=== PATIENT | female | born 1960 | race Caucasian/White ===

== ENCOUNTER 2023-04-13 16:02 | Outpatient (RCR) | payer OTHER, SELFPAY | END 2023-04-13 23:59 | disposition home or self-care (01) | LOC: ROT 16:02 | PROVIDERS: ATTENDING PHYSICIAN Orthopaedic Surgery Hand Surgery; PRIMARYCARE PHYSICIAN Internal Medicine | DX: M77.12 Lateral epicondylitis, left elbow (principal); Z73.6 Limitation of activities due to disability | CPT/HCPCS: 97010; 97110; 97166; 97535 ==

== ENCOUNTER 2023-05-04 15:30 | Outpatient (RCR) | payer OTHER, SELFPAY | END 2023-05-04 23:59 | disposition home or self-care (01) | LOC: RPT 15:30 | PROVIDERS: ATTENDING PHYSICIAN Orthopaedic Surgery Hand Surgery; PRIMARYCARE PHYSICIAN Internal Medicine | DX: Z47.89 Encounter for other orthopedic aftercare (principal); M77.12 Lateral epicondylitis, left elbow; Z73.6 Limitation of activities due to disability | CPT/HCPCS: 97010; 97110; 97530 ==

== ENCOUNTER 2023-05-13 13:20 | Outpatient (RCR) | payer OTHER, SELFPAY | END 2023-05-13 23:59 | disposition home or self-care (01) | LOC: RPT 13:20 | PROVIDERS: ATTENDING PHYSICIAN Orthopaedic Surgery Hand Surgery; PRIMARYCARE PHYSICIAN Internal Medicine | DX: Z47.89 Encounter for other orthopedic aftercare (principal); M77.12 Lateral epicondylitis, left elbow | CPT/HCPCS: 97010; 97110; 97140 ==

== ENCOUNTER 2023-07-09 16:45 | Observation (INO) | payer OTHER, SELFPAY ==
[2023-07-09] VITALS (10 sets, daily range): BP systolic 98–125; BP diastolic 56–78; BMI 21.8; BMI 21.1
[2023-07-09 08:44] LABS: % Basophils 0.9 % (0-2); % Eosinophils 2.1 % (0-6); % Immature Granulocytes 0.4 % (0-0.5); % Lymphocytes 40.9 % (20.5-51.1); % Monocytes 8.6 % (1.7-9.3); % Neutrophils 47.1 % (42.2-75.2); Absolute Basophils 0.1 10^3/uL (0-0.2); Absolute Eosinophils 0.2 10^3/uL (0-0.7); Absolute Lymphocytes 3.2 10^3/uL (1.2-3.4); Absolute Monocytes 0.7 10^3/uL (0.1-0.6); Absolute Neutrophils 3.7 10^3/uL (1.4-6.5); Hemoglobin 14.7 g/dL (12.0-16.0); Mean Corp Hgb Conc. 33.4 g/dL (33.0-37.0); Mean Corpuscular Hgb 29.3 pg (27.0-31.0); Mean Corpuscular Volume 87.6 fL (81.0-99.0); Mean Platelet Volume 10.1 fL (7.4-10.4); Nucleated Red Blood Cells % 0 %; Platelet Count 250 10^3/uL (130-400); Red Blood Cell Count 5.02 10^6/uL (4.20-5.40); Red Cell Dist. Width 12.4 % (11.5-14.5); White Blood Cell Count 7.8 10^3/uL (4.8-10.8)
--- NOTE | 2023-07-09 08:47 | ED.GENMED ---
History of Present Illness
General
Chief Complaint: Dizziness
Source: patient
Exam Limitations: none
Time Seen by Provider: 07/09/23 08:19
Nursing documentation reviewed up to this point in time: agreed with
Travel History
Have you had any contact with someone who has COVID-19?: No
Do you have any symptoms of coronavirus? Fever > 100 degrees, chills, cough, shortness of breath, sore throat, loss of taste or smell, muscle aches, or headache?: No
History of Present Illness
History of Present Illness:
Patient is a 62 female who presents to the ER for evaluation of new onset dizziness. Patient reports yesterday morning when she woke up the room was spinning but it resolved in less than 5 minutes. She was fine the rest of the day yesterday but
today she woke up with room spinning again. She tried to walk to the bathroom and fell she was very nauseous with this and diaphoretic. Patient continues to have symptoms here and did vomit here prior to my exam. She complains of dizziness worse
with position but it does occur intermittently at rest. She describes this as the room spinning. She denies any associated headache. She denies any recent head trauma no recent chiropractic manipulation. She denies any upper or lower extremity
numbness Rebeca weakness. She has no medical problems other than anxiety and is on Zoloft. She took an uber here and lives alone.
Past History
Past History
ED Past Medical History: None
ED Past Surgical History: None
Social History
Tobacco: Non-smoker
Alcohol: Occasional
Drug: None
Review of Systems
Review of Systems
Allergies reviewed?: Yes
All Other Systems: ROS reviewed and negative except as documented in HPI and ROS
Constitutional: Reports no symptoms; Denies fever or fatigue
Respiratory: Reports no symptoms
Cardiac: Reports no symptoms
ABD/GI: Reports nausea
: Reports no symptoms
Musculoskeletal: Reports no symptoms
Skin: Reports no symptoms
Neurological: Reports dizzy ('room spinning' ); Denies headache
Psychiatric: Reports no symptoms
Phy Exam
General Physical Exam
General Presentation: no apparent distress
General age: appears stated age
General Skin: warm and dry
General Habitus: normal
General Mental: alert
General Hydration: appears well hydrated
Eye Exam
Eye Exam: PERRL, EOMI and other (Horizontal nystagmus b/l)
Cardiovascular Exam
Cardiovascular Exam: regular rate/rhythm, no murmur and normal peripheral pulses
Pulmonary Exam
Pulmonary Exam: lungs clear and no respiratory distress
Neurological Exam
Neurological Exam: alert, oriented x3, no motor deficits and no sensory deficits
Course
Orders/Labs/Results
Orders:
Orders
07/09/23 07:59
Electrocardiogram (*1) Urgent
Reason for Study: Chest Pain
EKG- Treatment ONCE
07/09/23 08:28
Complete Blood Count/With Diff Urgent
Comprehensive Metabolic Panel Urgent
07/09/23 08:45
CT Head W/o Iv Contrast Urgent
Comment:
Reason For Exam: new onset vertigo no hx of
Lorazepam [Ativan] 0.5 mg IV NOW STA
07/09/23 08:47
0.9% Sodium Chloride 1000 ml [Nss] 1,000 ml IV BOLUS
Ondansetron Injectable [Zofran] 4 mg IV NOW STA
07/09/23 10:03
Physical Therapy Consult [Pt Eval And Treat] Urgent
Treatment: eval for vertigo
Activity Level: Ambulate
07/09/23 13:24
Diphenhydramine [Benadryl] 25 mg IV NOW STA
Metoclopramide [Reglan] 10 mg IV NOW STA
Abnormal Lab Results
07/09/23
08:28
Absolute Monos (auto) 0.7 H 10^3/uL
(0.1-0.6)
Glucose 115 H mg/dl
(70-99)
07/09/23 08:28
07/09/23 08:28
Vital Signs
Initial and Last Documented VS:
Initial Vital Signs
Temp Pulse Resp BP Pulse Ox
97.9 F 90 16 120/78 100
07/09/23 07:55 07/09/23 07:55 07/09/23 07:55 07/09/23 07:55 07/09/23 07:55
Last Documented Vital Signs
Temp Pulse Resp BP Pulse Ox
97.9 F 73 14 99/60 96
07/09/23 07:55 07/09/23 14:15 07/09/23 14:15 07/09/23 14:00 07/09/23 14:15
MDM/Problems Addressed
MDM/Problems Addressed:
Patient is a 62-year-old female who presented to the ER with vertigo. Patient with no prior history of vertigo had small episode yesterday which resolved on its own and woke up again this morning. Patient has had persistent vertigo despite
medications here in the ER on multiple repeat exams obvious nystagmus. She was seen by physical therapy. CT head negative. No other neuro deficits. Evaluated by ED physician will admit
*Radiology
Radiology exam reviewed: radiology read reviewed
*Pulse Oximetry
Patient hypoxic: no
*EKG
Interpreted by ED Provider?: Yes
Interpretation: normal
Heart Rate: 74
Rate: normal
Rhythm: sinus
Ischemia: no ischemia
*Critical Care Note
Total Time (30-74mins, 75-104mins- exclusive of procedures): Not Applicable
ED Attending Note
-
Portions of this chart may have been created with voice recognition software.� Occasional wrong word or��sound alike� substitutions may have occurred due to the inherent limitations of voice recognition software.
Discharge Plan
Departure
Patient Disposition: Admit
Date of Disposition: 07/09/23
Time of Disposition: 14:52
Admit to: Med/Surg
Admit to doctor: hospitalist
Presentation/result/management discussed w/ accepting MD/DO: Hospitalist
Patient with high blood pressure during this ER visit?: No
Condition: Fair
Covid-19: Not Applicable
Discharge Problem:
intractable vertigo
Prescriptions:
No Action
sertraline [Zoloft] 100 mg Tablet
100 mg PO DAILY
acetaminophen [Tylenol Ex Str Arthritis Pain] 500 mg Tablet
1,000 mg PO Q6H PRN (Reason: pain)
Patient Comments:
Prolia 60 mg/mL Syringe
60 mg SC [id number]
Referrals:
Ca Sandoval MD [Family Provider] -
Interventions
Interventions:
*Risk Screen - Suicide Last Done: 07/09/23 07:55
*General Assessment Last Done: 07/09/23 07:55
*Neglect/Abuse Screening Last Done: 07/09/23 07:55
ED- Neurological Assessment Last Done: 07/09/23 09:36
ED Swallowing Screen Last Done: 07/09/23 09:36
Discharge Date and Time
Print Language: MOROCCAN
[2023-07-09 08:58] LABS: ALT (SGPT) 20 U/L (0-35); AST (SGOT) 29 U/L (14-36); Albumin 4.5 g/dl (3.5-5.0); Alkaline Phosphatase 62 U/L (38-126); Blood Urea Nitrogen 16 mg/dl (7-17); Calcium 9.5 mg/dl (8.4-10.2); Carbon Dioxide 28 mmol/L (22-30); Chloride 103 mmol/L (98-107); Estimated Creatinine Clearance 77 ml/min; Glucose 115 mg/dl (70-99); Potassium 3.7 mmol/L (3.5-5.1); Sodium 139 mmol/L (135-145); Total Bilirubin 0.4 mg/dl (0.2-1.3); Total Protein 6.5 g/dl (6.3-8.2); eGFR > 60.00
[2023-07-09] MEDS: ATIVAN 0.5 MG IV (09:07)
[2023-07-09] MEDS: NSS 1000 IV ×2 (09:07→19:20)
[2023-07-09] MEDS: ZOFRAN 4 MG IV ×2 (09:07→19:18)
[2023-07-09] MEDS: BENADRYL 25 MG IV (14:02)
[2023-07-09] MEDS: REGLAN 10 MG IV (14:02)
--- NOTE | 2023-07-09 16:32 | HPS.HSE ---
Family Physician
-
Family Physician: Ca Sandoval
Chief Complaint
-
acute onset of vertigo
History of Present Illness
patient last week was troubled with the upper respiratory illness including losing her voice. She saw PCP and got antibiotics. her voice came back this Tuesday.
Yesterday morning when she woke up from the bed she had a sudden spinning movement of the environment around her. Resolved in 5 minutes.
Today when she woke up ,again she had return of the spinning feeling. It persisted today all Today she lost balance. She was feeling sweaty and hot at 1 point.
She can make this been a feeling stop.
She vomited once in the ER today.
When she was in ER looking towards the RN she felt her eyes were confused. She has not noticed much with the changes in the head movement but even sitting up for me she started to feel vertiginous.
No headache. No prior history of vertigo. No prior history of strokes or TIAs. No head trauma. Not known to have risk factors for stroke-no diabetes mellitus, non-smoker, no hypertension or hyperlipidemia. No cardiac disease.
Denies any double vision, speech disturbance, motor weakness or sensory symptoms in the hands or legs.
she states she has age-related hearing impairment. Getting a second opinion next month. Denies any tinnitus. This is ongoing for the last 6 months.
Medical History
Past Medical History
Past Medical History: Reports Psychiatric (Anxiety)
Past Surgical History: Reports None
Social History
Tobacco: Non-smoker
Alcohol: Occasional
Drug: None
Living: With Family
Family History
Family History: Not pertinent
Allergies / Home Medications
Allergies reflects when Allergies were last updated in [employer].
Home Medications with original date entered in [employer]
Allergy/Medication List:
Allergies
Allergy/AdvReac Type Severity Reaction Status Date / Time
No Known Allergies Allergy Verified 08/26/22 08:05
Home Medications
acetaminophen 500 mg tablet 1,000 mg PO Q6HPRN PRN mild pain 04/06/22
denosumab 60 mg/mL subcutaneous syringe (Prolia) 60 mg SC [id number] 04/06/22
sertraline 100 mg tablet (Zoloft) 100 mg PO HS 04/06/22
ascorbic acid (vitamin C) 500 mg tablet (Vitamin C) 500 mg PO DAILY 07/09/23
calcium carbonate (Calcium 600) 600 mg PO BID 07/09/23
cyanocobalamin (vitamin B-12) 1,000 mcg tablet 1,000 mcg PO DAILY 07/09/23
ferrous sulfate 325 mg (65 mg iron) tablet 325 mg PO DAILY 07/09/23
zolpidem 5 mg tablet (Ambien) 5 mg PO HSPRN PRN sleep 07/09/23
Review of Systems
-
A 12 point ROS was completed and negative except as noted: Yes
Physical Exam
Vital Signs
Vital Signs
Temp Pulse Resp BP Pulse Ox
97.9 F 82 23 110/64 96
07/09/23 07:55 07/09/23 16:00 07/09/23 16:00 07/09/23 16:00 07/09/23 15:45
Physical Exam
General: No Apparent Distress
HEENT: Moist mucous membranes
Respiratory: Clear
Cardiac: S1/S2 and Regular Rhythm
GI: Soft, Non Tender, Non Distended and Normal Bowel Sounds
Neuro: AO x 3, No Motor Deficits and Other ( Vertigo reproduced with head movements. Just sitting up and turning the head either ways was making her vertigious. Nystagmus fast phase noted towards right , it was elicited with gaze in both
directions; Head impulse test - when head turned to right and back to midline ,eye over shoot to left ); No Slurred Speech, Facial Droop or Tremors
Psych: Calm
Laboratory Results
-
07/09/23 08:28
07/09/23 08:28
Laboratory Results
Total Bilirubin 0.4 mg/dl (0.2-1.3) 07/09/23 08:28
AST 29 U/L (14-36) 07/09/23 08:28
ALT 20 U/L (0-35) 07/09/23 08:28
Alkaline Phosphatase 62 U/L (38-126) 07/09/23 08:28
Data Reviewed
-
CT Scan: Report Reviewed by me (CT head)
Lab Data: Labs Reviewed by me
Impression/Plan
-
Acute sudden onset vertigo without any other accompanying neurological symptoms or signs.
Examination shows nystagmus with fast phase to the right ; head impulse test showing overshooting to the left when head was moved from right to midline.
Patient also had an upper respite tract infection illness prior to onset.
suspected peripheral nystagmus.
CT of the head is negative for any acute findings.
In view of ongoing symptoms in the ER will be admitting patient as an observation.
Start [id number] Antivert. and as needed Valium. Add as needed Zofran.
If Persistent consider addition of steroids .
Anxiety /depression - cw home meds
Full code
[2023-07-09] MEDS: LOVENOX 40 MG SC (19:17)
[2023-07-09] MEDS: FLUSH (NSS) 2 FLUSH IV (19:18)
[2023-07-09] MEDS: ANTIVERT 25 MG PO (19:18)
[2023-07-09] MEDS: OSCAL CAL 500 500 MG PO (19:18)
[2023-07-09] MEDS: ZOLOFT 100 MG PO (20:44)
[2023-07-09] MEDS: TYLENOL 1000 MG PO (20:44)
[2023-07-09] MEDS: VALIUM INJECTION 2 MG IV (20:44)
[2023-07-10] MEDS: VALIUM INJECTION 2 MG IV (02:49)
[2023-07-10] MEDS: FLUSH (NSS) 2 FLUSH IV (02:50)
[2023-07-10] MEDS: ZOFRAN 4 MG IV (02:53)
[2023-07-10 03:23] VITALS: BP 104/64
[2023-07-10] MEDS: NSS 1000 IV (05:51)
[2023-07-10 07:00] VITALS: BP 108/67
[2023-07-10] MEDS: ANTIVERT 25 MG PO ×2 (07:33→15:08)
[2023-07-10] MEDS: VITAMIN B-12 1000 MCG PO (07:34)
[2023-07-10] MEDS: OSCAL CAL 500 500 MG PO (07:34)
[2023-07-10] MEDS: VITAMIN C 500 MG PO (07:34)
[2023-07-10] MEDS: FEOSOL 325 MG PO (07:34)
[2023-07-10 11:00] VITALS: BP 114/65
[2023-07-10] MEDS: TYLENOL 650 MG PO (12:00)
--- NOTE | 2023-07-10 13:10 | W.PN.HOSP.TC ---
Today's Communication/Plan
-
If continued improvement of vertigo and able to ambulate and have adequate oral intake will DC her today to follow-up with ENT as an outpatient.
Patient already has an ENT appointment in the [place] in July for her hearing impairment assessment.
Assessment / Plan
Assessment / Plan
Acute sudden onset vertigo without any other accompanying neurological symptoms or signs.
Patient also had an upper respite tract infection illness prior to onset.
suspected peripheral nystagmus.
CT of the head is negative for any acute findings.
Improving Vertigo. PT eval noted.
cw ulnks-mop-cryih Antivert. and as needed Valium. cw as needed Zofran.
If Persistent consider addition of steroids .
No tinnitus
Anxiety /depression - cw home meds
Full code
Anticipated Discharge: Today
Subjective/Interval History
-
Date of Service: July 10, 2023
Feeling improved with less vertigo.
She still feels some vertigo with head movements. Sometimes it is to the right sometimes to the left. No further nausea or vomiting.
No new symptoms.
Objective Data
-
Vital Signs:
Vital Signs
Temp Pulse Resp BP Pulse Ox
99.2 F 84 18 114/65 99
07/10/23 11:00 07/10/23 11:00 07/10/23 11:00 07/10/23 11:00 07/10/23 11:00
I&O
07/09/23 07/10/23 07/11/23
06:59 06:59 06:59
Intake Total 1580 / 1580
Balance 1580 / 1580
Review of Systems
-
Constitutional: Denies Fever
Respiratory: Denies Trouble Breathing
Cardiac: Denies Chest Pain
Neuro: Denies Headache
Physical Exam
-
General: No Apparent Distress
HEENT: Moist Mucous Membranes
Respiratory: Clear to Auscultation
Cardiac: Regular Rhythm and S1/S2
Neuro: AO x 3, No Motor Deficits and Other (Head impulse test neg no past fixing or fast saccades; Performed Becca Hallipike manuver at bedside - nystagmus nor vertigo symptom occured); Negative Tremors, Slurred Speech or Facial Droop
Psych: Calm
--- NOTE | 2023-07-10 14:34 | W.DS.TRANS ---
DC Summary - Load Blocker
-
Discharge Instructions:
Discharge Diagnosis/Procedures Vertigo -suspected peripheral
Diet Regular
Activity As tolerated
Driving Restrictions Not until seen by your Dr
Bathing Restrictions None
Instructions:
Stand-Alone Forms:
Changes to Home Medications: Yes
Discharge Medications:
DC Medications w/original date entered in [employer]
acetaminophen 500 mg tablet 1,000 mg PO Q6HPRN PRN mild pain 04/06/22
denosumab 60 mg/mL subcutaneous syringe (Prolia) 60 mg SC [id number] 04/06/22
sertraline 100 mg tablet (Zoloft) 100 mg PO HS 04/06/22
ascorbic acid (vitamin C) 500 mg tablet (Vitamin C) 500 mg PO DAILY 07/09/23
calcium carbonate (Calcium 600) 600 mg PO BID 07/09/23
cyanocobalamin (vitamin B-12) 1,000 mcg tablet 1,000 mcg PO DAILY 07/09/23
ferrous sulfate 325 mg (65 mg iron) tablet 325 mg PO DAILY 07/09/23
zolpidem 5 mg tablet (Ambien) 5 mg PO HSPRN PRN sleep 07/09/23
meclizine 25 mg tablet 25 mg PO TID #20 tabs 07/10/23
ondansetron 4 mg disintegrating tablet 4 mg PO Q8H PRN nausea and vomiting 3 days #9 tabs 07/10/23
Home Medication Changes
New medication-Antivert and Zofran
Pending Results: No
--- NOTE | 2023-07-10 14:53 | CM ---
Met with patient at bedside; initial assessment completed
Pharmacy verified: [facility], [address], [place]
Patient lives alone in a multilevel home; 2 steps to enter; 14 steps between floors; railings present; powder room on the 1st floor; 2nd floor bath has stall shower with seat
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
DME: none
Transportation: friend will provide ride home
SNF/Rehab/Home Health utilization history: none
Plan: DC to home today; with script for outpatient therapy
[2023-07-10 15:15] VITALS: BP 111/71
--- NOTE | 2023-07-10 16:05 | W.DCSUMMARY ---
Discharge Summary
Discharge Data
Date of Admission: 07/09/23
Date of Discharge: 07/10/23
-
Pending Results: No
Hospital Course
Primary diagnosis:
Acute vertigo suspected peripheral
Secondary diagnosis:
Bilateral hearing impairment
Hospital course:
Patient with recent history of upper respiratory tract infection symptoms especially of laryngitis presented with acute onset of vertigo with no associated other neurological symptoms. Clinical exam was most suggestive of peripheral vertigo and
could not rule out vestibular neuronitis. Patient had no tinnitus. He recently she had issues with bilateral hearing impairment and await ENT evaluation. CT head was negative for any acute intracranial abnormality. There is no risk factors for
stroke. She improved with symptomatic treatment. If she were to have intractable symptoms plan was for steroids.
Once she was improved she was sent on Antivert and Zofran. Advised to follow-up with ENT as planned before. Advised to hold on driving until her symptoms resolved.
Discharge Plan
-
Patient Disposition: Home with Home Care
Discharge Diagnosis/Procedures: Vertigo -suspected peripheral
Diet: Regular
Activity: As tolerated
Driving Restrictions: Not until seen by your Dr
Bathing Restrictions: None
Activity Restrictions/Additional Instructions:
Follow up with ENT physician as you planned for July
Referrals:
Ca Sandoval MD [Family Provider] - in less than 1 week
Prescriptions:
New
meclizine 25 mg Tablet
25 mg PO TID Qty: 20 0RF
Rx Instructions:
use three times a day on scheduled basis ;can use it as needed basis TID if continued improvement in vertigo
ondansetron 4 mg tablet,disintegrating
4 mg PO Q8H PRN (Reason: nausea and vomiting) 3 Days Qty: 9 0RF
Continued
sertraline [Zoloft] 100 mg Tablet
100 mg PO HS
acetaminophen 500 mg Tablet
1,000 mg PO Q6HPRN PRN (Reason: mild pain)
Patient Comments:
Prolia 60 mg/mL Syringe
60 mg SC [id number]
cyanocobalamin (vitamin B-12) 1,000 mcg Tablet
1,000 mcg PO DAILY
calcium carbonate [Calcium 600] 600 mg calcium (1,500 mg) Tablet
600 mg PO BID
ascorbic acid (vitamin C) [Vitamin C] 500 mg Tablet
500 mg PO DAILY
ferrous sulfate 325 mg (65 mg iron) Tablet
325 mg PO DAILY
zolpidem [Ambien] 5 mg Tablet
5 mg PO HSPRN PRN (Reason: sleep)
Discharge Orders:
Discharge Patient (As Directed); Ordered 07/10/23
Ordered By: Ghassan Moran
Discharge Date and Time
Print Language: HUNGARIAN
[2023-07-11 20:59] LABS: Hepatitis C Antibody Negative (Negative)
== END 2023-07-10 15:45 | disposition home health service (06) ==
LOC: 3 WEST ACU 16:45
PROVIDERS: Nurse Practitioner; ADMITTING PHYSICIAN Internal Medicine; EMERGENCY PHYSICIAN Emergency Medicine; FAMILY PHYSICIAN Internal Medicine
DX: R42 Dizziness and giddiness (principal); F41.9 Anxiety disorder, unspecified; F32.A Depression, unspecified; H91.8X3 Other specified hearing loss, bilateral; Z79.899 Other long term (current) drug therapy
CPT/HCPCS: 70450; 80053; 85025; 86803; 93005; 96361; 96374; 96375; 99285; G0378

== ENCOUNTER → 2023-09-28 07:32 | Outpatient (REF) | payer OTHER, SELFPAY | LOC: MRI 3T 07:32 | PROVIDERS: ATTENDING PHYSICIAN Surgery; FAMILY PHYSICIAN Nurse Practitioner Adult Health; REFERRING PHYSICIAN Obstetrics & Gynecology | DX: R92.2 Inconclusive mammogram (principal) | CPT/HCPCS: 77049 ==

== ENCOUNTER → 2023-12-09 07:36 | Outpatient (REF) | payer OTHER, SELFPAY | LOC: HWRAD 07:36 | PROVIDERS: ATTENDING PHYSICIAN Nurse Practitioner Adult Health | DX: R10.13 Epigastric pain (principal); E61.1 Iron deficiency; K21.9 Gastro-esophageal reflux disease without esophagitis | CPT/HCPCS: 76700 ==

== ENCOUNTER → 2024-02-03 08:18 | Outpatient (REF) | payer OTHER, SELFPAY | LOC: HWRAD 08:18 | PROVIDERS: ATTENDING PHYSICIAN Urology; FAMILY PHYSICIAN Nurse Practitioner Adult Health; REFERRING PHYSICIAN Internal Medicine | DX: N28.1 Cyst of kidney, acquired (principal) | CPT/HCPCS: 74178; Q9967 ==

== ENCOUNTER → 2024-02-29 07:25 | Outpatient (REF) | payer OTHER, SELFPAY ==
[2024-02-29 12:36] LABS: Urine Albumin Negative (Neg - Trace); Urine Bilirubin Negative (Negative); Urine Character Clear (Clear); Urine Color Yellow; Urine Glucose Negative (Negative); Urine Ketone Negative (Negative); Urine Leukocyte Negative (Negative); Urine Nitrite Negative (Negative); Urine Occult Blood Negative (Negative); Urine Urobilinogen Negative (Neg - 1+)
== END ==
LOC: WDC 07:25
PROVIDERS: ATTENDING PHYSICIAN Obstetrics & Gynecology; FAMILY PHYSICIAN Nurse Practitioner Adult Health
DX: Z12.31 Encounter for screening mammogram for malignant neoplasm of breast (principal); N39.0 Urinary tract infection, site not specified
CPT/HCPCS: 77063; 77067; 81003; 87086

== ENCOUNTER 2024-04-05 06:23 | Day surgery (SDC) | payer OTHER, SELFPAY | END 2024-04-05 13:42 | disposition home or self-care (01) | LOC: GI 06:23 | PROVIDERS: ATTENDING PHYSICIAN Internal Medicine | DX: D12.0 Benign neoplasm of cecum (principal); K63.5 Polyp of colon; K57.30 Diverticulosis of large intestine without perforation or abscess without bleeding; K56.2 Volvulus; K64.4 Residual hemorrhoidal skin tags; K22.70 Barrett's esophagus without dysplasia; K21.00 Gastro-esophageal reflux disease with esophagitis, without bleeding; K44.9 Diaphragmatic hernia without obstruction or gangrene; R05.3 Chronic cough; Z87.2 Personal history of diseases of the skin and subcutaneous tissue; Z80.0 Family history of malignant neoplasm of digestive organs | CPT/HCPCS: 45385; 45380; 43239; 88305; 88342 ==

== ENCOUNTER 2024-09-04 23:49 | Inpatient (IN) | payer OTHER, SELFPAY ==
[2024-09-04 16:52] VITALS: BP 156/69
[2024-09-04 17:23] LABS: % Basophils 0.4 % (0-2); % Eosinophils 0.8 % (0-6); % Immature Granulocytes 0.4 % (0-0.5); % Monocytes 10.1 % (1.7-9.3); % Neutrophils 57.3 % (42.2-75.2); Absolute Eosinophils 0.1 10^3/uL (0-0.7); Absolute Lymphocytes 3.3 10^3/uL (1.2-3.4); Absolute Monocytes 1.1 10^3/uL (0.1-0.6); Absolute Neutrophils 6.1 10^3/uL (1.4-6.5); Hematocrit 46.8 % (37.0-47.0); Hemoglobin 15.7 g/dL (12.0-16.0); Mean Corp Hgb Conc. 33.5 g/dL (33.0-37.0); Mean Corpuscular Hgb 29.3 pg (27.0-31.0); Mean Corpuscular Volume 87.3 fL (81.0-99.0); Mean Platelet Volume 10.4 fL (7.4-10.4); Nucleated Red Blood Cells % 0 %; Platelet Count 244 10^3/uL (130-400); Red Blood Cell Count 5.36 10^6/uL (4.20-5.40); Red Cell Dist. Width 12.2 % (11.5-14.5); White Blood Cell Count 10.6 10^3/uL (4.8-10.8)
[2024-09-04 17:46] LABS: ALT (SGPT) 22 U/L (0-35); AST (SGOT) 23 U/L (14-36); Albumin 5.2 g/dl (3.5-5.0); Alkaline Phosphatase 58 U/L (38-126); Blood Urea Nitrogen 19 mg/dl (7-17); Calcium 9.7 mg/dl (8.4-10.2); Carbon Dioxide 27 mmol/L (22-30); Chloride 101 mmol/L (98-107); Glucose 137 mg/dl (70-99); Potassium 3.9 mmol/L (3.5-5.1); Sodium 140 mmol/L (135-145); Total Bilirubin 0.4 mg/dl (0.2-1.3); Total Protein 7.4 g/dl (6.3-8.2); eGFR > 60.00
[2024-09-04 17:53] LABS: Lipase 1240 U/L (23-300)
[2024-09-04 17:56] LABS: Troponin I < 0.012 ng/ml
[2024-09-04 19:21] VITALS: BP 136/81
[2024-09-04 19:30] VITALS: BMI 21.6
[2024-09-04 20:00] VITALS: BP 106/84
--- NOTE | 2024-09-04 20:07 | ED.GENMED ---
History of Present Illness
General
Source: patient
Exam Limitations: none
Time Seen by Provider: 09/04/24 19:20
Nursing documentation reviewed up to this point in time: agreed with
History of Present Illness
History of Present Illness:
Patient to ED with complaint of pain to upper abdomen. Symptoms started this afternoon. Reports bloating and gas, no n/v/d. No prior history of same.
Past History
Past History
ED Past Medical History: None
ED Past Surgical History: None
Social History
Tobacco: Non-smoker
Alcohol: Occasional
Drug: None
Review of Systems
Review of Systems
Allergies reviewed?: Yes
All Other Systems: ROS reviewed and negative except as documented in HPI and ROS
Constitutional: Reports no symptoms
EENT: Reports no symptoms
Respiratory: Reports no symptoms
Cardiac: Reports no symptoms
ABD/GI: Reports abdominal pain (upper abd. pain)
: Reports no symptoms
Musculoskeletal: Reports no symptoms
Skin: Reports no symptoms
Neurological: Reports no symptoms
Psychiatric: Reports no symptoms
Phy Exam
General Physical Exam
General Presentation: well appearing and mild distress
General age: appears stated age
General Skin: warm and dry
General Habitus: normal
General Mental: alert
Cardiovascular Exam
Cardiovascular Exam: regular rate/rhythm and no edema
Pulmonary Exam
Pulmonary Exam: no respiratory distress and chest non tender
Gastrointestinal Exam
Gastrointestinal Exam: normal bowel sounds, soft, no organomegaly, no pulsatile mass, non distended and no cva tenderness
Palpation: left upper quadrant: Minimal tenderness, left lower quadrant: No tenderness, right upper quadrant: Moderate tenderness and right lower quadrant: No tenderness
Musculoskeletal Exam
Musculoskeletal Exam: full ROM
Skin Exam
Skin Exam: normal color, warm/dry and no rash
Psychiatric Exam
Psychiatric Exam: normal mood/affect
Course
Orders/Labs/Results
Orders:
Orders
09/04/24 16:57
Electrocardiogram (*1) Urgent
Reason for Study: Abdominal Pain
09/04/24 16:58
EKG- Treatment ONCE
09/04/24 17:10
Complete Blood Count/With Diff Urgent
Comprehensive Metabolic Panel Urgent
Lipase Urgent
Troponin I Urgent
09/04/24 20:06
CT Abd/pelvis W Iv Cont Urgent
Comment:
Reason For Exam: upper abd pain, elevated lipase
09/04/24 20:07
0.9% Sodium Chloride 1000 ml [Nss] 1,000 ml IV BOLUS
09/04/24 22:35
Ondansetron Injectable [Zofran] 4 mg IV NOW STA
09/04/24 22:55
Admit/Transfer Patient As Directed
Co-Sign Provider:
Level of Care: Inpatient admission
Assign to:: Medical/Surgical
Physician / Group: [email or web address]
Diagnosis: acute pancreatitis
Reason for Hospitalization: acute pancreatitis
Expected length of stay greater than two midnights?: Yes
ELOS- Estimated Length of Stay in days: 3
I certify the patient meets the requirements for IP care: Yes
09/04/24 22:56
Code Status As Directed
Resuscitation Status: Full Code
09/04/24 23:00
Flush (0.9% Sodium Chloride) [Flush (Nss)] See Dose Instructions IV PER PROTOCOL
09/05/24 00:47
Bisacodyl [Dulcolax] 10 mg RECTAL [id number] PRN
Docusate W/Senna [Senokot-S] 1 tablet PO BIDPRN PRN
HYDROmorphone [Dilaudid] 0.5 mg IV Q4HPRN PRN
Lactated Ringers [Lr] 1,000 ml IV 150 mls/hr
Ondansetron Injectable [Zofran] 4 mg IV Q6HPRN PRN
Polyethylene Glycol Powder [Miralax] 17 grams PO DAILYPRN PRN
09/05/24 00:47
Consult Notification Routine
Specialty to Notify: Gastroenterology
Date consulting provider notified: 09/05/24
Time consulting provider notified: 07:39
Notified:: Provider
Comment: tt sent
GASTROINTESTINAL CONSULT Routine
Consulting Provider: Bella Norman
Was physician already notified: No
Reason for consult: acute pancreatitis
Activity As Directed
Activity Level: With Assistance
Intake/ Output As Directed
Frequency: Per unit guidelines
Pneumatic Compression Sleeves As Directed
Type: Knee high
Vital Signs As Directed
Frequency: Per unit guidelines
DX Deep Vein Thrombosis Video Routine
09/05/24 Breakfast
NPO
Allow oral meds: Yes
Allow clear liquids: Sips of Clears
NPO with Ice Chips: Yes
09/05/24 07:18
Complete Blood Count/No Diff IN AM
Comprehensive Metabolic Panel IN AM
Lipase IN AM
Abnormal Lab Results
09/04/24
17:10
Absolute Monos (auto) 1.1 H 10^3/uL
(0.1-0.6)
Monocytes % 10.1 H %
(1.7-9.3)
BUN 19 H mg/dl
(7-17)
Glucose 137 H mg/dl
(70-99)
Albumin 5.2 H g/dl
(3.5-5.0)
Lipase 1240 H* U/L
(23-300)
09/04/24 17:10
09/04/24 17:10
Vital Signs
Initial and Last Documented VS:
Initial Vital Signs
Temp Pulse Resp BP Pulse Ox
98.3 F 62 18 156/69 100
09/04/24 16:52 06/24/25 16:52 09/04/24 16:52 09/04/24 16:52 09/04/24 16:52
Last Documented Vital Signs
Temp Pulse Resp BP Pulse Ox
98.1 F 63 16 118/63 96
09/05/24 08:15 09/05/24 08:15 09/05/24 08:15 09/05/24 08:15 09/05/24 08:15
*Radiology
Radiology exam reviewed: radiology read reviewed
*Pulse Oximetry
SaO2: 98
Oxygen Mode of Delivery: Room air
Patient hypoxic: no
*Critical Care Note
Total Time (30-74mins, 75-104mins- exclusive of procedures): Not Applicable
Update Note
Update Note:
Patient to ED with complaint of upper abd pain. Symptoms started suddenly this evening. No fever, chills. +nausea, no vomiting. Labs reveiwed. Lipase 1240. LFT's normal. WBC normal. VSS, she remains afebrile. WIll admit to hosptialist,
pancreatitis.
ED Attending Note
-
Portions of this chart may have been created with voice recognition software.� Occasional wrong word or��sound alike� substitutions may have occurred due to the inherent limitations of voice recognition software.
Discharge Plan
Departure
Patient Disposition: Admit
Date of Disposition: 09/04/24
Time of Disposition: 22:35
Presentation/result/management discussed w/ accepting MD/DO: Hospitalist
Patient with high blood pressure during this ER visit?: No
Condition: Fair
Covid-19: Not Applicable
Discharge Problem:
Pancreatitis
Interventions
Interventions:
*Risk Screen - Suicide Last Done: 09/05/24 00:58
*General Assessment Last Done: 09/04/24 19:28
*Neglect/Abuse Screening Last Done: 09/04/24 19:29
*ED- Fall Risk Assessment Last Done: 09/04/24 19:27
*ED COVID-19 Vaccine History Last Done: 09/04/24 19:27
*Nursing Disposition Last Done: 09/05/24 00:45
Discharge Date and Time
Discharge Date/Time: 09/05/24 00:45
[2024-09-04] MEDS: NSS 1000 IV (20:26)
[2024-09-04 21:00] VITALS: BP 130/76
[2024-09-04] MEDS: ZOFRAN 4 MG IV (22:46)
--- NOTE | 2024-09-04 22:51 | HPS.HSE ---
Family Physician
-
Family Physician: Diana Olivo
Chief Complaint
-
upper bdominal pain
History of Present Illness
HPI
63F Non smoker , occasional ETOH use HX GERD, Depreessio
- pw pain to upper abdomen started this afternoon.
- reports bloating and gas
- no n/v/d.
- No prior history of same
Medical History
Past Medical History
Past Medical History: Reports None
Past Surgical History: Reports None
Social History
Tobacco: Non-smoker
Alcohol: Occasional
Family History
Family History: Not pertinent
Allergies / Home Medications
Allergies reflects when Allergies were last updated in [facility].
Home Medications with original date entered in [facility]
Allergy/Medication List:
Allergies
Allergy/AdvReac Type Severity Reaction Status Date / Time
No Known Allergies Allergy Verified 08/26/22 08:05
Home Medications
acetaminophen 500 mg tablet 1,000 mg PO Q4HPRN PRN mild pain 04/06/22
denosumab 60 mg/mL subcutaneous syringe (Prolia) 60 mg SC [id number] 04/06/22
sertraline 100 mg tablet (Zoloft) 100 mg PO HS 04/06/22
calcium carbonate (Calcium 600) 600 mg PO BID 07/09/23
cyanocobalamin (vitamin B-12) 1,000 mcg tablet 1,000 mcg PO DAILY 07/09/23
zolpidem 5 mg tablet (Ambien) 5 mg PO HSPRN PRN sleep 07/09/23
ascorbic acid (vitamin C) 500 mg chewable tablet (Vitamin C) 1 g PO DAILY 09/04/24
cyclosporine 0.05 % eye drops in a dropperette 1 drp BOTH EYES BID 09/04/24
omeprazole 20 mg capsule,delayed release 20 mg PO BID 09/04/24
Review of Systems
-
Constitutional: Reports No Symptoms
EENT: Reports No Symptoms
Respiratory: Reports No Symptoms
Cardiac: Reports No Symptoms
Abdomen/GI: Reports Abdominal Pain
: Reports No Symptoms
Musculoskeletal: Reports No Symptoms
Skin: Reports No Symptoms
Neurological: Reports No Symptoms
Endocrine: Reports No Symptoms
Hematologic/Lymphatic: Reports No Symptoms
Psych: Reports No Symptoms
Physical Exam
Vital Signs
Vital Signs
Temp Pulse Resp BP Pulse Ox
98.2 F 63 17 130/76 98
09/04/24 19:35 09/04/24 21:45 09/04/24 21:45 09/04/24 21:00 09/04/24 21:15
Physical Exam
General: Well Developed, Well Nourished and No Apparent Distress
HEENT: NormoCephalic, Moist mucous membranes and Atraumatic
Respiratory: Clear
Cardiac: S1/S2 and Regular Rhythm; No Murmur or Rub
GI: Soft, Non Distended, Normal Bowel Sounds and Tender (mild tenderness of epigastrium ); No Organomegaly
Rectal: Deferred by Provider
Musculoskeletal: No Clubbing, No Cyanosis and No Edema
Skin: No Rash
Neuro: Nonfocal/grossly intact
Laboratory Results
-
09/04/24 17:10
09/04/24 17:10
Laboratory Results
Total Bilirubin 0.4 mg/dl (0.2-1.3) 09/04/24 17:10
AST 23 U/L (14-36) 09/04/24 17:10
ALT 22 U/L (0-35) 09/04/24 17:10
Alkaline Phosphatase 58 U/L (38-126) 09/04/24 17:10
Troponin I < 0.012 ng/ml 09/04/24 17:10
Lipase 1240 U/L (23-300) H* 09/04/24 17:10
Data Reviewed
-
CT Scan: Report Reviewed by me
Lab Data: Labs Reviewed by me
Impression/Plan
-
Laboratory Tests
09/04/24
17:10
WBC 10.6
Hgb 15.7
BUN 19 H
eGFR > 60.00
Total Bilirubin 0.4
AST 23
ALT 22
Troponin I < 0.012
Albumin 5.2 H
Lipase 1240 H*
CT Abd/pelvis W Iv Cont
1. Questionable mild enteritis/ileus. Otherwise no significant acute abnormality identified in the abdomen or pelvis, as described above.
2. Mild to moderate diffuse colonic stool burden may reflect constipation.
Last hospitalist admission: 07/09/23 - 07/10/23
PDX:
Acute vertigo suspected peripheral
Bilateral hearing impairment
ASSESSMENT & PLAN
Pending Rx reconciliation
Acute pancreatitis of unclear etiology > acute enteritis( no dirrhea )
Acute uppr abdomen pain with moderately elevated Lipase
- Nl LFts
- SHX NOT suggestive of ETOH use disorder
- NPO and LR IVF
- PRN narcotic analgesia
- GI consult
Depression
- stable
- Hold Sertraline for now
DVT Px: SCD
Full code
IP MS
[2024-09-05 00:49] VITALS: BMI 20.9
[2024-09-05 00:50] VITALS: BP 134/64
[2024-09-05] MEDS: LR 1000 IV ×4 (01:11→21:48)
--- NOTE | 2024-09-05 01:19 | PTCARENOTE ---
Pt arrived to room 417-02. Pt ambulated from stretcher to bed. Pt AAOx3, VSS. Pt oriented to room, call saleem placed within reach.
[2024-09-05 08:15] VITALS: BP 118/63
[2024-09-05] MEDS: NSS (PRESERVATIVE FREE) 10 ML IV (08:17)
[2024-09-05] MEDS: PROTONIX IV 40 MG IV (08:18)
[2024-09-05 08:27] LABS: Hematocrit 41.5 % (37.0-47.0); Hemoglobin 13.7 g/dL (12.0-16.0); Mean Corpuscular Hgb 29.4 pg (27.0-31.0); Mean Corpuscular Volume 89.1 fL (81.0-99.0); Mean Platelet Volume 10.7 fL (7.4-10.4); Platelet Count 185 10^3/uL (130-400); Red Blood Cell Count 4.66 10^6/uL (4.20-5.40); Red Cell Dist. Width 12.4 % (11.5-14.5); White Blood Cell Count 8.1 10^3/uL (4.8-10.8)
[2024-09-05 09:01] LABS: ALT (SGPT) 17 U/L (0-35); AST (SGOT) 19 U/L (14-36); Alkaline Phosphatase 40 U/L (38-126); Blood Urea Nitrogen 12 mg/dl (7-17); Calcium 8.8 mg/dl (8.4-10.2); Carbon Dioxide 27 mmol/L (22-30); Chloride 110 mmol/L (98-107); Estimated Creatinine Clearance 65 ml/min; Glucose 87 mg/dl (70-99); Potassium 4.5 mmol/L (3.5-5.1); Sodium 141 mmol/L (135-145); Total Bilirubin 0.4 mg/dl (0.2-1.3); Total Protein 5.8 g/dl (6.3-8.2); eGFR > 60.00
--- NOTE | 2024-09-05 09:26 | CON.GI ---
Addendum entered and electronically signed by Bella Allen Do, MD 09/05/24 12:30:
I saw and examined the patient.
The ESTERS AND EMULSIFIERS SUPERVISOR's note was reviewed and I agree with the note.
Comment: Tran is a 63yo W with h/o GERD with Gong's migraines and anxiety who was admitted for acute epigastric abd pain around 3pm yesterday. It lasted 2 hrs and now completely resolved. She reports bloating gas and h/o regurgitation
with reflux despite using omeprazole 20mg BID. She had had recent EGD/colon with Dr Diaz in Mar 2024. Vitals stable, NTTP, NABS. Labs reviewed lipase up but LFTs normal. CTAP with contrast ? enteritis/ileus. moderate stool burden.
Impression
- Acute abd pain
Now resolved after 2hrs
Suspect dyspepsia vs IBS-C. Other consideration is SIBO
- Elevated lipase
She does not met criteria for acute pancreatitis as pain not typical and pancreas appears normal on cross sectional imaging
- Constipation with ? ileus/enteritis
- GERD
- Gong's esophagus
- Migraines
- Anxiety
- Palmar plantar keratoderma
Recommendations
- Mag citrate 10oz now
- Full liquid diet now and if tolerates after BMs consider advancement to low fat diet for dinner/tomorrow
- C/w PPI
- HOB elevated
- EGD/colon recently done 03/[address] Diaz reviewed.
Will follow with you
Original Note:
Consultation
-
Date/Time Consultation Requested: 09/04/24 2251
Date/Time Consultation Performed: 09/05/24 0900
Requesting Provider: Dr. Calvert
Performing Provider: Dr. Norman/ISABEL Pacheco
Reason for Consultation: pancreatitis
Medical History
Chief Complaint / HPI
Chief Complaint: abd pain
History of Present Illness:
Tran is a 63-year-old female with past medical history of colon adenomas, GERD, palmar plantar keratoderma, Gong's esophagus, anxiety, alopecia, B12 deficiency, vitamin D deficiency, migraines, liver and renal cysts and osteoporosis who
presents to the emergency room with acute onset of upper abdomen/mid abdominal discomfort. We are asked to evaluate for the same. The patient states that yesterday for lunch she had salmon, avocado and vegetables. She states approximately 1 and
half hours later she had acute onset of upper abdominal/mid abdominal pain that she describes as sharp, constant, nonradiating. She had dry heaves and cold sweats. She states that this lasted approximately an hour and a half. She was driving home
and drove herself to the emergency room for further evaluation because of the discomfort. Although she had dry heaves she did not vomit. She did have a bowel movement earlier that morning that she states was large, soft and solid. She does state
that she has a bowel movement every day. She does not smoke. She drinks less than 1 glass of alcohol a week. She has had no changes in medication. On arrival to the ER WBC 10.6, hemoglobin 15.7, hematocrit 46.8, platelets 244, sodium 140,
potassium 3.9, BUN 19, creatinine 0.7, glucose 137, total bilirubin 0.4, AST 23, ALT 22, alk phos 58, lipase 1240. She had a CT performed with IV contrast that showed normal pancreas. Questionable mild enteritis/ileus. Otherwise no significant
acute abnormality identified in the abdomen or pelvis. Mild to moderate diffuse colonic stool burden may reflect constipation. The patient states that her pain went away while in the ER. He was given a fluid bolus of normal saline in the
emergency room as well as Zofran. She was continued on lactated Ringer's at 150 cc an hour. He has not required any pain medication.
Past Medical History
Past Medical History: Other (Colon adenomas, GERD, palmar plantar keratoderma, Gong's esophagus, anxiety, alopecia, B12 deficiency, vitamin D deficiency, migraines, liver and renal cyst, osteoporosis)
Past Surgical History: Other (Breast biopsies, left L3-L4 ILESI, ACL repair right knee, right rotator cuff repair, bilateral cataracts, tennis elbow repair)
Social History
Tobacco: Non-Smoker
Alcohol: Occasional (1 glass wine a week)
Drug: None
Living: With Family
Employment: Employed
Family History
Family History: Other (Colon cancer Father, pancreatic cancer grandfather)
Allergies / Home Medications
Allergy/AdvReac Type Severity Reaction Status Date / Time
No Known Allergies Allergy Verified 08/26/22 08:05
�Medication �Instructions �Recorded
acetaminophen 500 mg tablet 1,000 mg PO Q4HPRN PRN mild pain 04/06/22
denosumab 60 mg/mL subcutaneous 60 mg SC [id number] 04/06/22
syringe (Prolia)
sertraline 100 mg tablet (Zoloft) 100 mg PO HS 04/06/22
calcium carbonate (Calcium 600) 600 mg PO BID 07/09/23
cyanocobalamin (vitamin B-12) 1,000 mcg PO DAILY 07/09/23
1,000 mcg tablet
zolpidem 5 mg tablet (Ambien) 5 mg PO HSPRN PRN sleep 07/09/23
ascorbic acid (vitamin C) 500 mg 1 g PO DAILY 09/04/24
chewable tablet (Vitamin C)
cyclosporine 0.05 % eye drops in a 1 drp BOTH EYES BID 09/04/24
dropperette
omeprazole 20 mg capsule,delayed 20 mg PO BID 09/04/24
release
Review of Systems
-
All other systems: A 12 pt ROS was Negative except as stated above in HPI
Vital Signs
Temp Pulse Resp BP Pulse Ox
98.1 F 63 16 118/63 96
09/05/24 08:15 09/05/24 08:15 09/05/24 08:15 09/05/24 08:15 09/05/24 08:15
Physical Exam
Exam
General: No Apparent Distress
HEENT: Anicteric
Respiratory: Clear
Cardiac: Regular Rhythm
GI: Soft, Non Tender, Non Distended and Normal Bowel Sounds
Musculoskeletal: No Edema
Neuro: AO x 3
Psych: Calm
Results
WBC 8.1 10^3/uL (4.8-10.8) 09/05/24 07:18
Hgb 13.7 g/dL (12.0-16.0) 09/05/24 07:18
Hct 41.5 % (37.0-47.0) 09/05/24 07:18
MCV 89.1 fL (81.0-99.0) 09/05/24 07:18
Plt Count 185 10^3/uL (130-400) D 09/05/24 07:18
Absolute Neuts (auto) 6.1 10^3/uL (1.4-6.5) 09/04/24 17:10
Sodium 141 mmol/L (135-145) 09/05/24 07:18
Potassium 4.5 mmol/L (3.5-5.1) 09/05/24 07:18
Chloride 110 mmol/L (98-107) H 09/05/24 07:18
Carbon Dioxide 27 mmol/L (22-30) 09/05/24 07:18
BUN 12 mg/dl (7-17) 09/05/24 07:18
Creatinine 0.7 mg/dL (0.6-1.0) 09/05/24 07:18
Calcium 8.8 mg/dl (8.4-10.2) 09/05/24 07:18
Total Bilirubin 0.4 mg/dl (0.2-1.3) 09/05/24 07:18
AST 19 U/L (14-36) 09/05/24 07:18
ALT 17 U/L (0-35) 09/05/24 07:18
Alkaline Phosphatase 40 U/L (38-126) 09/05/24 07:18
Lipase 1240 U/L (23-300) H* 09/04/24 17:10
Diagnostic Image Results:
CT Abd/Pelvis with OV contrast 09/04/24:
1. Questionable mild enteritis/ileus. Otherwise no significant acute abnormality identified in the abdomen or pelvis, as described above.
2. Mild to moderate diffuse colonic stool burden may reflect constipation.
Prior GI Procedures:
--04/10/2024- EGD for reflux, chronic cough, history of PPK (palmoplantar keratoderma), no family history of esophageal cancer. Taking sporadic PPI. Small hiatal hernia otherwise normal esophagus mildly irregular Z-line positive for focal intestinal
metaplasia and chronic inflammation, negative for dysplasia. Lab atrophy in the stomach along the lesser curvature and antrum. Biopsies were unrevealing and negative for H. pylori otherwise normal exam to the small bowel. Repeat EGD in 5 years and
will need once daily PPI indefinitely because of the intestinal metaplasia.
--04/10/2024 COLO Family history of colon cancer. Significant looping with an adult scope to the cecum. Left-sided diverticulosis, 2 small cecal adenomas, 3 mm sigmoid hyperplastic polyp otherwise significant looping but otherwise normal. Repeat
colonoscopy in 5 years. Adult scope 45 minutes
--12/09/2023 ultrasound abdomen: 1 cm hepatic cyst. 1.5 cm left parapelvic renal cyst.
--2019 MRI mild dilatation of the mid CBD otherwise normal with no concerning pathology in the bile ducts, pancreas, liver, or bowel.
--01/2019 history of advanced adenoma. Adequate prep through a difficult colon to the cecum. Small internal hemorrhoids, excessive looping otherwise normal. Repeat colo in 5 years.
--2016, colonoscopy: flat 1 cm proximal ascending polyp removed.
Assessment / Plan
-
63-year-old female with past medical history of colon adenomas, GERD, palmar plantar keratoderma, Gong's esophagus, anxiety, alopecia, B12 deficiency, vitamin D deficiency, migraines, liver and renal cysts and osteoporosis who presents to the
emergency room with acute onset of upper abdomen/mid abdominal discomfort.WBC 10.6, hemoglobin 15.7, hematocrit 46.8, platelets 244, sodium 140, potassium 3.9, BUN 19, creatinine 0.7, glucose 137, total bilirubin 0.4, AST 23, ALT 22, alk phos 58,
lipase 1240. She had a CT performed with IV contrast that showed normal pancreas. Questionable mild enteritis/ileus. Otherwise no significant acute abnormality identified in the abdomen or pelvis. Mild to moderate diffuse colonic stool burden
may reflect constipation. The patient states that her pain went away while in the ER. He was given a fluid bolus of normal saline in the emergency room as well as Zofran. She was continued on lactated Ringer's at 150 cc an hour. He has not
required any pain medication. Review of abdominal imaging dating back to 2015 never show any signs of gallstones. Patient drinks less than 1 glass of alcohol a week. No changes in medications. No LFT abnormalities.
Impression:
Acute epigastric/upper abdominal pain, transient lasting 90 minutes
Elevated lipase
--> CT with IV contrast with normal pancreas
--> no gallstones
--> no recent ETOH, has <1 glass wine a week. Last use (1/2 glass champagne on Tuesday)
--> no new meds
--> review of all abd imaging including US, MRI abd without gallstones
--> MRI in 2019 - mild dilatation of the mid CBD otherwise normal with no concerning pathology in the bile ducts, pancreas, liver, or bowel
Constipation on CT imaging
Barretts Esophagus
Plan:
-Continue IVF
-Patient without pain, can advance to full liquid diet
-Will give bottle of mag citrate to facilitate BMs, no stool in left colon.
-Continue Pantoprazole 40 mg
-To consider outpatient MRI, prior hx of mildly dilated CBD of 8mm (2019) without any other concerning findings.
-Further recommendations to be forthcoming.
-
-
Thank you for consultation and allowing me to participate in the patient's care. Please call the conduit installer GI physician during the after hours with any questions or concerns.
--- NOTE | 2024-09-05 09:30 | W.PN.HOSP.TC ---
Today's Communication/Plan
-
ok to advance diet as tolerated
Might dc later today
Treat with laxative
Assessment / Plan
Assessment / Plan
Physical Exam
General: Well Developed, Well Nourished and No Apparent Distress
HEENT: NormoCephalic, Moist mucous membranes and Atraumatic
Respiratory: Clear
Cardiac: S1/S2 and Regular Rhythm; No Murmur or Rub
GI: Soft, Non Distended, Normal Bowel Sounds and not Tender
Musculoskeletal: No Clubbing, No Cyanosis and No Edema
Skin: No Rash
Neuro: AAOX3. Nonfocal/grossly intact
Psych: calm
#Acute enteritis
I think Lipase elevation is not c/w pancreatitis
No abdominal tenderness on exam
No nausea
Will resume diet slowly
CT showed constipation/ stool burden, will do Laxatives
No fever or leukocytosis
Added PPI
# Liver cyst, pt aware and follow in OP
Normal LFT
# mild Depression
Mood is normal and cooperative
- stable
- Resume Sertraline for now
Total time spent to see the patient, examine the patient, review data and lab result, discuss treatment plan with patient, nursing staff around 55 minutes
Anticipated Discharge: Within 24 hours
Subjective/Interval History
-
Date of Service: September 05, 2024
feels better, hungry
no abdominal pain, no nausea
Objective Data
-
Labs:
Laboratory Results
09/05/24
07:18
WBC 8.1
Hgb 13.7
Hct 41.5
Plt Count 185 D
Sodium 141
Potassium 4.5
Chloride 110 H
Carbon Dioxide 27
BUN 12
Creatinine 0.7
Glucose 87
Calcium 8.8
Total Bilirubin 0.4
AST 19
ALT 17
Alkaline Phosphatase 40
Vital Signs:
Vital Signs
Temp Pulse Resp BP Pulse Ox
98.1 F 63 16 118/63 96
09/05/24 08:15 09/05/24 08:15 09/05/24 08:15 09/05/24 08:15 09/05/24 08:15
I&O
09/04/24 09/05/24 09/06/24
06:59 06:59 06:59
Intake Total 1060 / 1060
Balance 1060 / 1060
[2024-09-05 10:15] LABS: Lipase 457 U/L (23-300)
[2024-09-05] MEDS: ZOLOFT 100 MG PO (10:40)
[2024-09-05] MEDS: CITROMA 300 ML PO (10:40)
--- NOTE | 2024-09-05 15:55 | CM ---
Patient seen bedside, initial assessment completed. Admitted for upper abdominal pain.
Patient resides alone in a 2S, 4 steps to enter. Patient is independent in all areas, no DME. No therapy hx reported. 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
Address, points of contact and insurance verified
PCP: Diana Olivo
Pharmacy: [facility]
Patient stated she likely will d/c tomorrow
Plan: Home, no needs
[2024-09-05 16:07] VITALS: BP 115/67
[2024-09-05] MEDS: SENOKOT-S 1 TABLET PO (18:08)
[2024-09-05] MEDS: TYLENOL 650 MG PO (18:08)
[2024-09-05] MEDS: MIRALAX 17 GRAMS PO (18:09)
[2024-09-05] MEDS: AMBIEN 5 MG PO (21:48)
[2024-09-05 22:51] VITALS: BP 104/69
[2024-09-06] MEDS: LR 1000 IV (04:22)
[2024-09-06] MEDS: COMPAZINE 5 MG IV (05:00)
[2024-09-06] MEDS: PROTONIX IV 40 MG IV (07:34)
[2024-09-06] MEDS: NSS (PRESERVATIVE FREE) 10 ML IV (07:34)
[2024-09-06 07:35] VITALS: BP 100/59
--- NOTE | 2024-09-06 10:16 | CM ---
Patient seen at bedside with nurse present on 4. Patient is for discharge home today and stated that she has her car in the parking lot and does not need any further supports. CM will continue to follow for discharge planning needs.
Plan; for discharge home with no needs anticipated
[2024-09-06] MEDS: TYLENOL 1000 MG PO (10:19)
--- NOTE | 2024-09-06 10:31 | W.PN.GI.CBS2 ---
Addendum entered and electronically signed by Bella Allen Do, MD 09/06/24 10:53:
I saw and examined the patient.
The MANAGER LABOR RELATIONS's note was reviewed and I agree with the note.
Comment: She had copious BMs yesterday. Abd discomfort improved. Less gas and no further GERD breakthrough. Exam VSS soft abd NTTP. Labs reviewed.
Recommendations
- Advise to use half cap miralax daily going forward
- C/w PPI
- Low fodmap diet given gas
At this juncture tolerating diet and ok from GI perspective for hosp d/c. She can FU with Dr Diaz.
GI will sign off please call for ?
Original Note:
Today's Communication / Plan
-
Add MiraLAX
Okay to DC per GI perspective
Assessment / Plan
-
63-year-old female with past medical history of colon adenomas, GERD, palmar plantar keratoderma, Gong's esophagus, anxiety, alopecia, B12 deficiency, vitamin D deficiency, migraines, liver and renal cysts and osteoporosis who presents to the
emergency room with acute onset of upper abdomen/mid abdominal discomfort.WBC 10.6, hemoglobin 15.7, hematocrit 46.8, platelets 244, sodium 140, potassium 3.9, BUN 19, creatinine 0.7, glucose 137, total bilirubin 0.4, AST 23, ALT 22, alk phos 58,
lipase 1240. She had a CT performed with IV contrast that showed normal pancreas. Questionable mild enteritis/ileus. Otherwise no significant acute abnormality identified in the abdomen or pelvis. Mild to moderate diffuse colonic stool burden
may reflect constipation. The patient states that her pain went away while in the ER. He was given a fluid bolus of normal saline in the emergency room as well as Zofran. She was continued on lactated Ringer's at 150 cc an hour. He has not
required any pain medication. Review of abdominal imaging dating back to 2015 never show any signs of gallstones. Patient drinks less than 1 glass of alcohol a week. No changes in medications. No LFT abnormalities.
Impression:
Acute epigastric/upper abdominal pain, transient lasting 90 minutes
Elevated lipase (not consistent with acute pancreatitis)
--> CT with IV contrast with normal pancreas
--> no gallstones
--> no recent ETOH, has <1 glass wine a week. Last use (1/2 glass champagne on Tuesday)
--> no new meds
--> review of all abd imaging including US, MRI abd without gallstones
--> MRI in 2019 - mild dilatation of the mid CBD otherwise normal with no concerning pathology in the bile ducts, pancreas, liver, or bowel
Constipation on CT imaging
Barretts Esophagus
Plan:
-Patient to resume her omeprazole 40 mg daily upon discharge
-Follow low-fat diet
-Start MiraLAX half capful to full capful daily
-Follow-up in the office as an outpatient. Patient to call office for follow-up.
-To consider outpatient MRI, prior hx of mildly dilated CBD of 8mm (2019) without any other concerning findings.
- Okay to DC per GI perspective.
Subjective
Subjective
Date of Service: September 06, 2024
Patient without any since arrival to emergency room. Tolerating low-fat diet. Had multiple bowel movements after magnesium citrate.
Objective
Data Reviewed
Laboratory Data:
Laboratory Results
09/05/24 07:18
09/05/24 07:18
Laboratory Results
Total Bilirubin 0.4 mg/dl (0.2-1.3) 09/05/24 07:18
AST 19 U/L (14-36) 09/05/24 07:18
ALT 17 U/L (0-35) 09/05/24 07:18
Alkaline Phosphatase 40 U/L (38-126) 09/05/24 07:18
Lipase 457 U/L (23-300) H 09/05/24 07:18
Vital Signs and I&O:
Vital Signs
Temp Pulse Resp BP Pulse Ox
97.9 F 62 16 100/59 98
09/06/24 07:35 09/06/24 07:35 09/06/24 07:35 09/06/24 07:35 09/06/24 07:35
I&O
09/05/24 09/06/24 09/07/24
06:59 06:59 06:59
Intake Total 1060 / 1060
Balance 1060 / 1060
Physical Exam
Physical Exam
HEENT: Anicteric
Cardiology: Normal Sinus Rhythm
Pulmonary: Clear
GI: Soft, Non Distended, Non Tender and Normal Bowel Sounds
Extremities: No Edema
Neuro: Non Focal
--- NOTE | 2024-09-06 10:50 | W.PN.HOSP.TC ---
Today's Communication/Plan
-
dc
Assessment / Plan
Assessment / Plan
Physical Exam
General: Well Developed, Well Nourished and No Apparent Distress
HEENT: NormoCephalic, Moist mucous membranes and Atraumatic
Respiratory: Clear
Cardiac: S1/S2 and Regular Rhythm; No Murmur or Rub
GI: Soft, Non Distended, Normal Bowel Sounds and not Tender
Musculoskeletal: No Clubbing, No Cyanosis and No Edema
Skin: No Rash
Neuro: AAOX3. Nonfocal/grossly intact
Psych: calm
#Acute enteritis
I think Lipase elevation is not c/w pancreatitis
No abdominal tenderness on exam
No nausea
She tolerated diet
Given Laxative for constipation. Lipase came down.
CT showed constipation/ stool burden.
No fever or leukocytosis
Added PPI
Appreciate GI help
# Liver cyst, pt aware and follow in OP
Normal LFT
# mild Depression
Mood is normal and cooperative
- stable
- Resume Sertraline for now
# Mild Magrain, Tylenol.
Total discharge time spent to see the patient, examine the patient, review data and lab result, discuss discharge plan with patient, nursing staff around 65 minutes
Anticipated Discharge: Today
Subjective/Interval History
-
Date of Service: September 06, 2024
She feels much better
no abd pain
Tolerating diet
No nausea
had few BM
Objective Data
-
Vital Signs:
Vital Signs
Temp Pulse Resp BP Pulse Ox
97.9 F 62 16 100/59 98
09/06/24 07:35 09/06/24 07:35 09/06/24 07:35 09/06/24 07:35 09/06/24 07:35
I&O
09/05/24 09/06/2409/07/25
06:59 06:59 06:59
Intake Total 1060 / 1060
Balance 1060 / 1060
--- NOTE | 2024-09-06 11:03 | W.DCSUMMARY ---
Discharge Summary
Discharge Data
Date of Admission: 09/04/24
Date of Discharge: 09/06/24
-
Pending Results: No
Hospital Course
63 years old female presented with abdominal pain/epigastric pain. Patient was admitted to the hospital. She did not have fever or leukocytosis. She had a scan with contrast that showed normal pancreas with no enlarged lymph nodes, free fluid, or
free air, slightly prominent fluid-filled small bowel loops throughout the lower abdomen, the bowel is without evidence of obstruction or adjacent inflammatory changes, mild to moderate diffuse colonic stool burden. She had elevated lipase but came
down with IVF and was not consistent with acute pancreatitis. Patient was seen by gastroenterology, recommended bowel regimen to relieve constipation. Patient was given laxative and she felt much better. No more abdominal pain. She was able to
tolerate diet. Patient was advised to continue laxative use if needed. Patient remained hemodynamically stable and she was discharged home in a stable condition.
Discharge Plan
-
Patient Disposition: Home (Routine Discharge)
Discharge Diagnosis/Procedures: Acute enteritis/ constipation
You were seen By GI doctor, you had IVF.
Diet: As tolerated
Referrals:
Bella Norman MD [Active, Gastroenterology]
Referral Note: As needed
Diana Olivo CRNP [Family Provider, General]
Peace Diaz DO [Active, Gastroenterology]
Referral Note: as needed
Prescriptions:
Continued
sertraline [Zoloft] 100 mg Tablet
100 mg PO HS
acetaminophen 500 mg Tablet
1,000 mg PO Q4HPRN PRN (Reason: mild pain)
Patient Comments:
Prolia 60 mg/mL Syringe
60 mg SC [id number]
cyanocobalamin (vitamin B-12) 1,000 mcg Tablet
1,000 mcg PO DAILY
calcium carbonate [Calcium 600] 600 mg calcium (1,500 mg) Tablet
600 mg PO BID
zolpidem [Ambien] 5 mg Tablet
5 mg PO HSPRN PRN (Reason: sleep)
ascorbic acid (vitamin C) [Vitamin C] 500 mg Tablet,Chewable
1 g PO DAILY
omeprazole 20 mg Capsule,Delayed Release(Dr/Ec)
20 mg PO BID
cyclosporine 0.05 % dropperette
1 drp BOTH EYES BID
Discharge Orders:
Discharge Patient (As Directed); Ordered 09/06/24
Ordered By: Shama Do
Discharge Date and Time
Discharge Date/Time: 09/06/24 11:00
Print Language: YAKUT
== END 2024-09-06 11:00 | disposition home or self-care (01) | DRG 391 ==
LOC: 4 WEST ACU 23:49
PROVIDERS: Student in an Organized Health Care Education/Training Program; ADMITTING PHYSICIAN Internal Medicine; ATTENDING PHYSICIAN Internal Medicine; CONSULT PHYSICIAN Internal Medicine Gastroenterology; EMERGENCY PHYSICIAN Emergency Medicine; FAMILY PHYSICIAN Nurse Practitioner Adult Health
DX: K52.9 Noninfective gastroenteritis and colitis, unspecified (principal); K85.90 Acute pancreatitis without necrosis or infection, unspecified; K21.9 Gastro-esophageal reflux disease without esophagitis; F32.A Depression, unspecified; E53.8 Deficiency of other specified B group vitamins; E55.9 Vitamin D deficiency, unspecified; F41.9 Anxiety disorder, unspecified; G43.909 Migraine, unspecified, not intractable, without status migrainosus; K22.70 Barrett's esophagus without dysplasia; M81.0 Age-related osteoporosis without current pathological fracture; Q82.8 Other specified congenital malformations of skin; Z80.0 Family history of malignant neoplasm of digestive organs
CPT/HCPCS: 74177; 80053; 83690; 84484; 85025; 85027; 93005; 96361; 96374; 99285; Q9967

== ENCOUNTER → 2024-11-01 14:25 | Outpatient (REF) | payer OTHER, SELFPAY | LOC: MRI 3T 14:25 | PROVIDERS: ATTENDING PHYSICIAN Surgery; FAMILY PHYSICIAN Nurse Practitioner Adult Health | DX: R92.2 Inconclusive mammogram (principal) | CPT/HCPCS: 77049; A9585 ==

== ENCOUNTER 2025-02-08 06:53 | Outpatient (RCR) | payer OTHER, SELFPAY | END 2025-02-08 23:59 | disposition home or self-care (01) | LOC: RPT 06:53 | PROVIDERS: ATTENDING PHYSICIAN Internal Medicine Rheumatology; FAMILY PHYSICIAN Nurse Practitioner Adult Health | DX: M25.551 Pain in right hip (principal); M25.552 Pain in left hip; R26.89 Other abnormalities of gait and mobility; Z73.6 Limitation of activities due to disability; M62.81 Muscle weakness (generalized) | CPT/HCPCS: 97110; 97162; 97535 ==

== ENCOUNTER 2025-02-28 07:05 | Outpatient (RCR) | payer OTHER, SELFPAY | END 2025-03-05 23:59 | disposition home or self-care (01) | LOC: RPT 07:05 | PROVIDERS: ATTENDING PHYSICIAN Internal Medicine Rheumatology; FAMILY PHYSICIAN Nurse Practitioner Adult Health | DX: M25.551 Pain in right hip (principal); M25.552 Pain in left hip; R26.89 Other abnormalities of gait and mobility; Z73.6 Limitation of activities due to disability; M62.81 Muscle weakness (generalized) | CPT/HCPCS: 97110; 97530 ==

== ENCOUNTER → 2025-03-13 08:04 | Outpatient (REF) | payer OTHER, SELFPAY | LOC: RAD 08:04 | PROVIDERS: ATTENDING PHYSICIAN Internal Medicine Rheumatology; FAMILY PHYSICIAN Nurse Practitioner Adult Health | DX: M81.0 Age-related osteoporosis without current pathological fracture (principal) | CPT/HCPCS: 77080 ==